=== PATIENT | female | born 1960 | race African-American/Black ===

== ENCOUNTER 2021-08-01 15:26 | Emergency (ER) | payer OTHER ==
[~2021-08-01] VITALS: Ht 167.6 cm; Wt 68.0 kg
[2021-08-01] MEDS ORDERED: LIDOCAINE 5% PATCH TOP SCH (17:15)
[2021-08-01] MEDS ORDERED: KETOROLAC 60MG/2ML VIAL IM ONE (17:15)
[2021-08-01] MEDS ORDERED: CYCLOBENZAPRINE 10MG TABLET PO ONE (17:15)
[2021-08-01] MEDS ORDERED: NAP5EC MT (17:59)
[2021-08-01] MEDS ORDERED: CYCL10TA21 MT (17:59)
[2021-08-01 18:08] VITALS: BP 150/82
== END 2021-08-01 18:21 | disposition home or self-care (01) ==
LOC: ER 15:26
DX: M25.551 Pain in right hip (principal); E11.649 Type 2 diabetes mellitus with hypoglycemia without coma; I10 Essential (primary) hypertension; W01.198A Fall on same level from slipping, tripping and stumbling with subsequent striking against other object, initial encounter; Y93.89 Activity, other specified; Y92.512 Supermarket, store or market as the place of occurrence of the external cause; Z88.6 Allergy status to analgesic agent
CPT/HCPCS: 82962; 96372; 99283; J1885

== ENCOUNTER 2023-05-26 09:13 | Emergency (ER) | payer MEDICARE, OTHER ==
[~2023-05-26] VITALS: Ht 165.1 cm; Wt 65.0 kg
[~2023-05-26 09:13] MED LIST: CYCL10TA21 MT; NAP5EC MT
[2023-05-26 09:27] VITALS: O2SAT 100
[2023-05-26] MEDS: GLUCAGON,HUMAN RECOMBINANT 1MG/VIAL IM ONE (10:45)
[2023-05-26 14:14] VITALS: BP 104/78; PULSE 76; RESP 16; TEMP 98
== END 2023-05-26 14:44 | disposition home or self-care (01) ==
LOC: ER 09:13
DX: T38.3X1A Poisoning by insulin and oral hypoglycemic [antidiabetic] drugs, accidental (unintentional), initial encounter (principal); E11.9 Type 2 diabetes mellitus without complications; I10 Essential (primary) hypertension; Z88.5 Allergy status to narcotic agent; Y92.9 Unspecified place or not applicable
CPT/HCPCS: 99283; 96372; 82962; J1610

== ENCOUNTER 2023-11-26 21:21 | Inpatient (IN) | payer MEDICAID ==
[~2023-11-26] VITALS: Ht 162.6 cm; Wt 71.7 kg
[~2023-11-26 21:21] MED LIST changes: +ARIP20TA62 PO; +ASPI-1497 PO; +ATOR40TA70 PO; +CARV25TA47 PO; +CHLO25TA2 PO; -CYCL10TA21 MT; +DAPA10TA PO; +HYDR-4005 PO; +INSU100I28 SQ; +MECL-299 MT; +METO5TAB86 MT; +MIRT-144 PO; -NAP5EC MT; +ONDA4TAB50 MT; +PARO-150 PO; +PREG75CA PO; +SITA50TA3 PO; +SULF1TAB48 MT; +TIMO5DRO32 EACHEYE; +TIZA4CAP6 PO; +VALS160T28 PO
[2023-11-26 22:29] LABS: CHLORIDE 95 mEq/L (98-107); HEMATOCRIT. 46.2 % (36.0-48.0); HEMOGLOBIN. 13.3 g/dL (12.0-16.0); MEAN CORPUSCULAR HEMOGLOBIN 28.2 pg (28.0-32.0); MEAN CORPUSCULAR HGB CONC 28.9 g/dL (31.0-37.0); MEAN CORPUSCULAR VOLUME 97.5 fL (81.0-99.0); PLATELET 218 x1000/uL (130-400); POTASSIUM 5.2 mEq/L (3.5-5.1); RED BLOOD CELL COUNT 4.73 mill/uL (4.2-5.4); RED CELL DISTRIBUTION WIDTH 16.7 % (11.6-14.6); SODIUM 133 mEq/L (136-145); WHITE BLOOD COUNT 12.1 x1000/uL (4.5-11.0)
[2023-11-26 22:30] LABS: CALCIUM 9.2 mg/dL (8.7-10.4); CARBON DIOXIDE 12 mEq/L (21-32); INR 1.2; PROTHROMBIN TIME 13.5 sec (9.6-11.0)
[2023-11-26 22:32] LABS: DIFFERENTIAL COMMENT 1
[2023-11-26 22:35] LABS: UREA NITROGEN BLOOD 25 mg/dL (9-23)
[2023-11-26 22:37] LABS: ALANINE AMINOTRANSFERASE 32 IU/L (10-49); ALBUMIN 4.6 g/dL (3.2-4.8); ASPARTATE AMINOTRANSFERASE 29 IU/L (<34); BILIRUBIN DIRECT 0.3 mg/dL (<=3.0); BILIRUBIN TOTAL 0.8 mg/dL (0.1-1.0); PROTEIN TOTAL 7.8 g/dL (6.0-8.3)
[2023-11-26] MEDS: KETOROLAC 30MG/ML VIAL IV STA (22:39)
[2023-11-26] MEDS: SODIUM CHLORIDE 0.9% 1000ML BAG (SEPSIS BOLUS) IV ONE (22:40)
[2023-11-26] MEDS: CEFTRIAXONE 1GM/50ML 50 ML IV ONE (22:41)
[2023-11-26 22:45] LABS: CREATININE 2.4 mg/dL (0.6-1.0); GLUCOSE 634 mg/dL (70-105); LACTIC ACID 3.5 mmol/L (0.4-2.0)
[2023-11-26] MEDS ORDERED: BLOOD SUGAR DIAGNOSTIC STRIP TEST PRN (22:45)
[2023-11-26] MEDS ORDERED: DEXT IV SCH (22:45)
[2023-11-26] MEDS ORDERED: INSULIN REGULAR (DRIP) 100 UNITS in SODIUM CHLORIDE 0.9% 99 ML IV SCH (22:45)
[2023-11-26] MEDS ORDERED: LACTATED RINGERS IV SCH (22:45)
[2023-11-26] MEDS: INSULIN REGULAR (HUMULIN R) 1000UNITS/10ML VIAL IV ONE (22:45)
[2023-11-26] MEDS ORDERED: POTASSIUM CHLORIDE IV SCH (22:45)
[2023-11-26] MEDS ORDERED: DEXTROSE 50% WATER 50ML SYRINGE IV PRN (22:45)
[2023-11-26 23:13] LABS: PLATELET ESTIMATE NORMAL
[2023-11-26 23:14] LABS: ANISOCYTOSIS 1+
[2023-11-26] MEDS: BLOOD SUGAR DIAGNOSTIC STRIP TEST SCH (23:30)
[2023-11-27] VITALS (51 sets, daily range): BP systolic 85–139; BP diastolic 42–65; PULSE 70–95; RESP 11–27; TEMP 36.8628; O2SAT 78–100
[2023-11-27] MEDS: INSULIN REGULAR 100U/100ML PMX 100 ML IV SCH ×2 (00:36→09:33)
[2023-11-27 00:42] LABS: TROPONIN I HIGH SENSITIVITY 49 ng/L (3.0-34)
[2023-11-27 00:44] LABS: LACTIC ACID 3.6 mmol/L (0.4-2.0)
[2023-11-27] MEDS ORDERED: CLONIDINE 0.1MG TABLET PO PRN (01:15)
[2023-11-27] MEDS ORDERED: DOCUSATE SODIUM 100MG CAPSULE PO PRN (01:15)
[2023-11-27] MEDS ORDERED: IPRATROPIUM/ALBUTEROL 0.5-3(2.5)MG/3ML NEB HHN PRN (01:15)
[2023-11-27] MEDS ORDERED: ENOXAPARIN 40MG/0.4ML SYR SUBCUT SCH (01:15)
[2023-11-27] MEDS ORDERED: GUAIFENESIN 200MG/10ML SUGAR FREE UDC PO PRN (01:15)
[2023-11-27] MEDS ORDERED: MAGNESIUM/ALUMINUM HYDROXIDE/SIMETHICONE 30ML UDC PO PRN (01:15)
[2023-11-27] MEDS ORDERED: ACETAMINOPHEN 325MG TABLET PO PRN (01:15)
[2023-11-27] MEDS: INSULIN REGULAR (HUMULIN R) 1000UNITS/10ML VIAL IV SCH (01:30)
[2023-11-27 02:03] LABS: BG BASE EXCESS -14.7 mmol/L (-2.0-3.0); BG CARBOXYHEMOGLOBIN 0.4 % (0.5-1.5); BG DEOXYHEMOGLOBIN 2.2 % (0.0-5.0); BG HCO3 ACT 9.4 mmol/L (21.0-28.0); BG METHEMOGLOBIN 0.2 % (0.5-1.5); BG OXYGEN SATURATION 97.8 % (94.0-98.0); BG OXYHEMOGLOBIN 97.2 % (94.0-98.0); BG PCO2 19.5 mmHg (32.0-45.0); BG PH 7.303 (7.350-7.450); BG SAMPLE SITE LEFT RADIAL; BG TOTAL HEMOGLOBIN 12.9 g/dL (12.0-16.0)
[2023-11-27] MEDS ORDERED: CEFEPIME 1GM IN DEXT 5% 50ML IV SCH (02:15)
[2023-11-27 03:07] LABS: CHLORIDE 103 mEq/L (98-107); POTASSIUM 4.3 mEq/L (3.5-5.1); SODIUM 139 mEq/L (136-145)
[2023-11-27 03:08] LABS: CARBON DIOXIDE 12 mEq/L (21-32)
[2023-11-27 03:13] LABS: CREATININE 2.3 mg/dL (0.6-1.0); UREA NITROGEN BLOOD 30 mg/dL (9-23)
[2023-11-27 03:15] LABS: PHOSPHORUS 5.9 mg/dL (2.5-4.9)
[2023-11-27 04:25] LABS: GLUCOSE 508 mg/dL (70-105)
[2023-11-27] MEDS ORDERED: SODIUM PHOSPHATE 15 MMOL in SODIUM CHLORIDE 0.9% 245 ML IV PRN (04:30)
[2023-11-27] MEDS ORDERED: MAGNESIUM 2 G PREMIX 50 ML IV PRN (04:30)
[2023-11-27 04:42] LABS: HEMATOCRIT. 37.7 % (36.0-48.0); HEMOGLOBIN. 11.6 g/dL (12.0-16.0); MEAN CORPUSCULAR HEMOGLOBIN 27.9 pg (28.0-32.0); MEAN CORPUSCULAR HGB CONC 30.8 g/dL (31.0-37.0); MEAN CORPUSCULAR VOLUME 90.5 fL (81.0-99.0); MEAN PLATELET VOLUME 9.4 fl (7.4-10.4); PLATELET 205 x1000/uL (130-400); RED BLOOD CELL COUNT 4.17 mill/uL (4.2-5.4); RED CELL DISTRIBUTION WIDTH 16.2 % (11.6-14.6); WHITE BLOOD COUNT 11.7 x1000/uL (4.5-11.0)
[2023-11-27] MEDS ORDERED: DEXTROSE 50% WATER 50ML SYRINGE IV PRN ×2 (04:45→17:30)
[2023-11-27] MEDS ORDERED: BLOOD SUGAR DIAGNOSTIC STRIP TEST PRN (04:45)
[2023-11-27 04:49] LABS: DIFFERENTIAL COMMENT 1
[2023-11-27 04:50] LABS: CHLORIDE 105 mEq/L (98-107); POTASSIUM 3.6 mEq/L (3.5-5.1); SODIUM 141 mEq/L (136-145)
[2023-11-27 04:51] LABS: CALCIUM 8.5 mg/dL (8.7-10.4); CARBON DIOXIDE 15 mEq/L (21-32)
[2023-11-27 04:56] LABS: CREATININE 2.5 mg/dL (0.6-1.0); TRIGLYCERIDE 157 mg/dL (0-150); UREA NITROGEN BLOOD 39 mg/dL (9-23)
[2023-11-27 04:57] LABS: CREATINE KINASE MB FRACTION 1.6 ng/mL (0.5-3.6); LDL CHOLESTEROL 55 mg/dL (5-100)
[2023-11-27 04:58] LABS: CHOLESTEROL 143 mg/dL (<200); HDL CHOLESTEROL 54 mg/dL (>65); PHOSPHORUS 4.7 mg/dL (2.5-4.9)
[2023-11-27 05:00] LABS: T4 FREE 1.12 ng/dL (0.89-1.76)
[2023-11-27] MEDS ORDERED: KCL 20MEQ/100ML PREMIX 100 ML IV PRN (05:00)
[2023-11-27] MEDS ORDERED: POTASSIUM CHLORIDE 40 MEQ in SODIUM CHLORIDE 0.9% 230 ML IV PRN (05:00)
[2023-11-27 05:01] LABS: THYROID STIMULATING HORMONE 0.21 uIU/mL (0.55-4.78)
[2023-11-27 05:08] LABS: GLUCOSE 445 mg/dL (70-105)
[2023-11-27 05:15] LABS: ANISOCYTOSIS 1+; PLATELET ESTIMATE NORMAL
[2023-11-27] MEDS: CEFEPIME 1GM/50ML 50 ML IV SCH (05:22)
[2023-11-27] MEDS: SODIUM CHLORIDE 0.45% 1,000 ML IV SCH (05:22)
[2023-11-27] MEDS: ONDANSETRON HCL 4MG/2ML INJ IV PRN (05:31)
[2023-11-27 05:39] LABS: CLARITY URINE CLEAR (CLEAR); COLOR URINE YELLOW (YELLOW); GLUCOSE URINE 3+ (NEGATIVE); KETONES URINE 2+ (NEGATIVE); LEUKOCYTE ESTERASE URINE NEGATIVE (NEGATIVE); NITRITE URINE NEGATIVE (NEGATIVE); OCCULT BLOOD URINE NEGATIVE (NEGATIVE); PH URINE 5.5 (4.5-8.0); PROTEIN URINE NEGATIVE (NEGATIVE); SPECIFIC GRAVITY URINE 1.023 (1.005-1.030); UROBILINOGEN URINE 0.2 E.U./dL (0.2-1.0)
[2023-11-27] MEDS: BLOOD SUGAR DIAGNOSTIC STRIP TEST SCH ×2 (05:46→18:06)
[2023-11-27 05:47] LABS: *AMPHETAMINES SCREEN URINE NEGATIVE (NEGATIVE); *BARBITURATES SCREEN URINE NEGATIVE (NEGATIVE); *BENZODIAZEPINES SCREEN URINE NEGATIVE (NEGATIVE); *COCAINE SCREEN URINE NEGATIVE (NEGATIVE); CANNABINOID URINE SCREEN NEGATIVE (NEGATIVE); ECSTASY MDMA SCREEN URINE NEGATIVE (NEGATIVE); METHADONE URINE SCREEN NEGATIVE (NEGATIVE); OPIATES URINE SCREEN NEGATIVE (NEGATIVE); PHENCYCLIDINE URINE SCREEN NEGATIVE (NEGATIVE)
[2023-11-27 07:02] LABS: RBC URINE 0-2 /hpf (0-2); SQUAMOUS EPITHELIAL CELL URINE FEW /lpf (RARE/1+)
[2023-11-27 07:03] LABS: BACTERIA URINE NONE SEEN; WBC URINE NONE SEEN /hpf (0-2)
[2023-11-27] MEDS: LACTATED RINGERS IV SCH (07:14)
[2023-11-27] MEDS: DEXT IV SCH (07:14)
[2023-11-27] MEDS: POTASSIUM CHLORIDE IV SCH (07:14)
[2023-11-27] MEDS ORDERED: INSULIN REGULAR 100U/100ML PMX 99 ML IV SCH (08:00)
[2023-11-27] MEDS: DEXT 5%/0.45% NACL 1000ML 1,000 ML IV SCH (09:00)
[2023-11-27] MEDS: ENOXAPARIN 30MG/0.3ML SYR SUBCUT SCH (09:34)
[2023-11-27] MEDS: ASPIRIN 81MG TABLET PO SCH (09:35)
[2023-11-27] MEDS: AMIODARONE 200MG TABLET PO SCH (09:35)
[2023-11-27] MEDS: LOSARTAN 50 MG TABLET PO SCH (09:35)
[2023-11-27] MEDS: PANTOPRAZOLE SODIUM 40 MG/VIAL IV SCH (09:35)
[2023-11-27] MEDS: PAROXETINE HCL 10MG TABLET PO SCH (09:58)
[2023-11-27] MEDS: MIDODRINE HCL 5MG TABLET PO SCH (15:42)
[2023-11-27] MEDS: INSULIN GLARGINE 100 UNITS/ML SUBCUT SCH (18:07)
[2023-11-27] MEDS: INSULIN LISPRO 100 UNITS/ML SUBCUT SCH (18:20)
[2023-11-27 19:12] LABS: CHLORIDE 105 mEq/L (98-107); POTASSIUM 2.9 mEq/L (3.5-5.1); SODIUM 139 mEq/L (136-145)
[2023-11-27 19:13] LABS: CALCIUM 8.1 mg/dL (8.7-10.4); CARBON DIOXIDE 27 mEq/L (21-32)
[2023-11-27 19:18] LABS: CREATININE 1.9 mg/dL (0.6-1.0); GLUCOSE 178 mg/dL (70-105); UREA NITROGEN BLOOD 39 mg/dL (9-23)
[2023-11-27 19:19] LABS: CREATINE KINASE MB FRACTION 2.8 ng/mL (0.5-3.6)
[2023-11-27 19:20] LABS: CREATINE KINASE 219 IU/L (34-145); PHOSPHORUS 3.3 mg/dL (2.5-4.9)
[2023-11-27 19:27] LABS: TROPONIN I HIGH SENSITIVITY 48 ng/L (3.0-34)
[2023-11-27] MEDS: ATORVASTATIN CALCIUM 20MG TABLET PO SCH (20:03)
[2023-11-27] MEDS: KCL 20MEQ/100ML PREMIX 100 ML IV SCH (20:39)
[2023-11-27] MEDS: MAGNESIUM 1 G PREMIX 100 ML IV NR (20:44)
[2023-11-27] MEDS ORDERED: MIRTAZAPINE 30MG TABLET PO SCH (21:00)
[2023-11-27] MEDS: MIRTAZAPINE 15MG TABLET PO SCH (21:05)
[2023-11-27 21:13] LABS: CHLORIDE 103 mEq/L (98-107); POTASSIUM 3.2 mEq/L (3.5-5.1); SODIUM 138 mEq/L (136-145)
[2023-11-27 21:14] LABS: CARBON DIOXIDE 26 mEq/L (21-32)
[2023-11-27 21:21] LABS: PHOSPHORUS 3.2 mg/dL (2.5-4.9)
[2023-11-27 23:47] LABS: CREATINE KINASE MB FRACTION 2.7 ng/mL (0.5-3.6)
[2023-11-28] VITALS (50 sets, daily range): BP systolic 85–127; BP diastolic 39–75; PULSE 63–89; RESP 9–24; TEMP 36.28068–37.05852; O2SAT 97–100
[2023-11-28 06:17] LABS: BASOPHILS % 0.4 % (0.0-2.0); HEMATOCRIT. 36.9 % (36.0-48.0); HEMOGLOBIN. 11.8 g/dL (12.0-16.0); LYMPHOCYTES % 10.6 % (20.0-50.0); MEAN CORPUSCULAR HEMOGLOBIN 28.3 pg (28.0-32.0); MEAN CORPUSCULAR VOLUME 88.3 fL (81.0-99.0); MEAN PLATELET VOLUME 9.4 fl (7.4-10.4); MONOCYTES % 10.9 % (2.0-8.0); NEUTROPHILS % 78.1 % (40.0-76.0); PLATELET 178 x1000/uL (130-400); RED BLOOD CELL COUNT 4.17 mill/uL (4.2-5.4); RED CELL DISTRIBUTION WIDTH 15.7 % (11.6-14.6); WHITE BLOOD COUNT 10.8 x1000/uL (4.5-11.0)
[2023-11-28 06:30] LABS: CARBON DIOXIDE 23 mEq/L (21-32); CHLORIDE 105 mEq/L (98-107); POTASSIUM 3.9 mEq/L (3.5-5.1); SODIUM 135 mEq/L (136-145)
[2023-11-28 06:31] LABS: CALCIUM 8.5 mg/dL (8.7-10.4)
[2023-11-28 06:35] LABS: CREATININE 1.6 mg/dL (0.6-1.0)
[2023-11-28 06:36] LABS: GLUCOSE 328 mg/dL (70-105); UREA NITROGEN BLOOD 24 mg/dL (9-23)
[2023-11-28 06:38] LABS: PHOSPHORUS 2.3 mg/dL (2.5-4.9)
[2023-11-28] MEDS: INSULIN LISPRO 100 UNITS/ML SUBCUT SCH (07:50)
[2023-11-28] MEDS: SODIUM CHLORIDE 0.9% 1,000 ML IV NR (14:45)
[2023-11-28] MEDS: METOCLOPRAMIDE HCL 10MG/2ML VIAL IV NR (16:56)
[2023-11-28] MEDS: PHENOL/SODIUM PHENOLATE 1.4% SRPAY 177ML MM NR (19:06)
[2023-11-28] MEDS: CEFEPIME 2GM/100ML 100 ML IV SCH (19:07)
[2023-11-28] MEDS: INSULIN GLARGINE 100 UNITS/ML SUBCUT SCH (22:04)
[2023-11-29] VITALS (23 sets, daily range): BP systolic 101–131; BP diastolic 43–73; PULSE 65–79; RESP 12–20; TEMP 36.44736–37.05852; O2SAT 97–100
[2023-11-29 05:49] LABS: HEMATOCRIT 36.8 % (36.0-48.0); MEAN CORPUSCULAR HEMOGLOBIN 28.5 pg (28.0-32.0); MEAN CORPUSCULAR HGB CONC 32.7 g/dL (31.0-37.0); PLATELET 168 x1000/uL (130-400); RED BLOOD CELL COUNT 4.23 mill/uL (4.2-5.4); RED CELL DISTRIBUTION WIDTH 15.9 % (11.6-14.6); WHITE BLOOD COUNT 6.6 x1000/uL (4.5-11.0)
[2023-11-29 05:51] LABS: CARBON DIOXIDE 29 mEq/L (21-32); CHLORIDE 105 mEq/L (98-107); POTASSIUM 3.6 mEq/L (3.5-5.1); SODIUM 139 mEq/L (136-145)
[2023-11-29 05:52] LABS: CALCIUM 8.5 mg/dL (8.7-10.4)
[2023-11-29 05:57] LABS: CREATININE 1.4 mg/dL (0.6-1.0); GLUCOSE 290 mg/dL (70-105); UREA NITROGEN BLOOD 16 mg/dL (9-23)
[2023-11-29] MEDS ORDERED: LIDOCAINE HCL 1% 10 MG/ML 10ML VIAL ONE (08:42)
[2023-11-29] MEDS: MIDODRINE HCL 5MG TABLET PO SCH (13:00)
[2023-11-29] MEDS: POTASSIUM PHOSPHATE 15 MMOL in DEXT 5% WATER 245 ML IV NR (17:40)
[2023-11-29] MEDS: ACETAMINOPHEN 325MG TABLET PO PRN (17:57)
[2023-11-29] MEDS: CEFEPIME 2GM/100ML 100 ML IV SCH (21:59)
[2023-11-30] VITALS: BP 122/61; PULSE 71; RESP 18; TEMP 36.50292; O2SAT 97
[2023-11-30 04:00] VITALS: BP 130/67; PULSE 68; RESP 18; TEMP 36.50292; O2SAT 100
[2023-11-30 08:00] VITALS: BP 130/68; PULSE 69; RESP 18; TEMP 36.61404; O2SAT 99
[2023-11-30 08:11] LABS: CARBON DIOXIDE 31 mEq/L (21-32); CHLORIDE 104 mEq/L (98-107); POTASSIUM 3.3 mEq/L (3.5-5.1); SODIUM 141 mEq/L (136-145)
[2023-11-30 08:12] LABS: CALCIUM 8.9 mg/dL (8.7-10.4)
[2023-11-30 08:16] LABS: CREATININE 1.1 mg/dL (0.6-1.0); GLUCOSE 173 mg/dL (70-105)
[2023-11-30 08:17] LABS: UREA NITROGEN BLOOD 8 mg/dL (9-23)
[2023-11-30 08:23] LABS: HEMOGLOBIN 11.3 g/dL (12.0-16.0); MEAN CORPUSCULAR HEMOGLOBIN 28.1 pg (28.0-32.0); MEAN CORPUSCULAR HGB CONC 32.5 g/dL (31.0-37.0); MEAN CORPUSCULAR VOLUME 86.6 fL (81.0-99.0); PLATELET 152 x1000/uL (130-400); RED BLOOD CELL COUNT 4.03 mill/uL (4.2-5.4); RED CELL DISTRIBUTION WIDTH 15.7 % (11.6-14.6); WHITE BLOOD COUNT 3.6 x1000/uL (4.5-11.0)
[2023-11-30] MEDS: LOSARTAN 25 MG TABLET PO SCH (08:39)
[2023-11-30 12:00] VITALS: BP 126/70; PULSE 74; RESP 18; TEMP 36.50292; O2SAT 100
[2023-11-30] MEDS ORDERED: LOSA25TA26 PO (14:58)
[2023-11-30] MEDS ORDERED: INSU100I28 SQ (14:58)
[2023-11-30] MEDS ORDERED: PARO10TA74 PO (14:58)
[2023-11-30] MEDS ORDERED: AMI2 PO (14:58)
[2023-11-30] MEDS ORDERED: ASPI-1160 PO (14:58)
[2023-11-30] MEDS ORDERED: MIRT-89 PO (14:58)
[2023-11-30] MEDS ORDERED: INSU100I13 SQ (14:58)
[2023-11-30 15:32] VITALS: BP 126/70; PULSE 74; TEMP 97.7; O2SAT 100
[2023-11-30 16:00] VITALS: BP 132/72; PULSE 76; RESP 18; TEMP 36.6696; TEMP 36.66960; O2SAT 98
== END 2023-11-30 17:54 | disposition home or self-care (01) | DRG 637 ==
LOC: ER 21:21 → EDBEDREQSVC 22:51 → CVICU 22:54 → EDBEDREQ 22:57 → EDBEDREQTM 22:57 → 8WST 11-29 11:08
PROVIDERS: ADMIT Internal Medicine; ATTEND Internal Medicine
PROC: 02HV33Z Insertion of Infusion Device into Superior Vena Cava, Percutaneous Approach (ICD-10-PCS; principal; 2023-11-29)
PROC: B548ZZA Ultrasonography of Superior Vena Cava, Guidance (ICD-10-PCS; 2023-11-29)
DX: E11.10 Type 2 diabetes mellitus with ketoacidosis without coma (principal); I21.A1 Myocardial infarction type 2; N17.9 Acute kidney failure, unspecified; E11.42 Type 2 diabetes mellitus with diabetic polyneuropathy; E78.5 Hyperlipidemia, unspecified; F32.A Depression, unspecified; E87.5 Hyperkalemia; N18.9 Chronic kidney disease, unspecified; I12.9 Hypertensive chronic kidney disease with stage 1 through stage 4 chronic kidney disease, or unspecified chronic kidney disease; E11.22 Type 2 diabetes mellitus with diabetic chronic kidney disease; H40.9 Unspecified glaucoma; H70.91 Unspecified mastoiditis, right ear; H92.01 Otalgia, right ear; D72.829 Elevated white blood cell count, unspecified; E86.0 Dehydration; Z79.4 Long term (current) use of insulin; Z87.891 Personal history of nicotine dependence
CPT/HCPCS: 36415; 36573; 36600; 71045; 80048; 80051; 80061; 80076; 80305; 81003; 82010; 82375; 82550; 82553; 82805; 82962; 83036; 83605; 83735; 83930; 84100; 84145; 84439; 84443; 84484; 85025; 85027; 93005; 93970; 99291; C1725; C1893; J0692; J0696; J1650; J1815; J1885; J2405; J2470; J2765; J3475; J3480; J3490; J7030; J7060; J7121

== ENCOUNTER 2024-05-29 12:37 | Emergency (ER) | payer MEDICAID ==
[~2024-05-29] VITALS: Ht 177.8 cm; Wt 73.0 kg
[~2024-05-29 12:37] MED LIST changes: +AMI2 PO; -ARIP20TA62 PO; +ASPI-1160 PO; -ASPI-1497 PO; -CARV25TA47 PO; -CHLO25TA2 PO; -HYDR-4005 PO; +INSU100I13 SQ; +LOSA25TA26 PO; -MECL-299 MT; +MECL-299 PO; +METO-293 PO; -METO5TAB86 MT; -MIRT-144 PO; +MIRT-89 PO; +ONDA-239 PO; -ONDA4TAB50 MT; -PARO-150 PO; +PARO10TA74 PO; -SULF1TAB48 MT; -TIZA4CAP6 PO; -VALS160T28 PO
[2024-05-29 12:38] VITALS: O2SAT 98
[2024-05-29] MEDS: KETOROLAC 30MG/ML VIAL IV ONE (14:23)
[2024-05-29] MEDS: SODIUM CHLORIDE 0.9% 1,000 ML IV ONE (14:23)
[2024-05-29] MEDS: ONDANSETRON HCL 4MG/2ML INJ IV ONE (14:23)
[2024-05-29 14:33] LABS: HEMATOCRIT. 40.3 % (36.0-48.0); HEMOGLOBIN. 12.3 g/dL (12.0-16.0); MEAN CORPUSCULAR HEMOGLOBIN 27.9 pg (28.0-32.0); MEAN CORPUSCULAR HGB CONC 30.4 g/dL (31.0-37.0); MEAN CORPUSCULAR VOLUME 91.6 fL (81.0-99.0); MEAN PLATELET VOLUME 9.1 fl (7.4-10.4); PLATELET 191 x1000/uL (130-400); RED CELL DISTRIBUTION WIDTH 16.2 % (11.6-14.6); WHITE BLOOD COUNT 17.5 x1000/uL (4.5-11.0)
[2024-05-29 14:40] LABS: DIFFERENTIAL COMMENT 1
[2024-05-29 14:42] LABS: CHLORIDE 94 mEq/L (98-107); POTASSIUM 4.4 mEq/L (3.5-5.1); SODIUM 133 mEq/L (136-145)
[2024-05-29 14:43] LABS: CARBON DIOXIDE 21 mEq/L (21-32)
[2024-05-29 14:48] LABS: GLUCOSE 242 mg/dL (70-105)
[2024-05-29 14:49] LABS: TROPONIN I HIGH SENSITIVITY 10 ng/L (3.0-34); UREA NITROGEN BLOOD 24 mg/dL (9-23)
[2024-05-29 14:50] LABS: ALANINE AMINOTRANSFERASE 111 IU/L (10-49); ALBUMIN 4.1 g/dL (3.2-4.8); ASPARTATE AMINOTRANSFERASE 134 IU/L (<34); BILIRUBIN DIRECT 0.4 mg/dL (<=3.0)
[2024-05-29 14:51] LABS: BILIRUBIN TOTAL 0.8 mg/dL (0.1-1.0); PROTEIN TOTAL 7.2 g/dL (6.0-8.3)
[2024-05-29 14:52] LABS: CREATININE 1.6 mg/dL (0.6-1.0); ETHANOL BLOOD < 10 mg/dL (<10)
[2024-05-29 15:05] LABS: INR 1.1; PROTHROMBIN TIME 11.6 sec (9.6-11.0)
[2024-05-29 15:07] LABS: BETA HYDROXYBUTYRATE 7.6 mMol/L (0.0-0.3)
[2024-05-29 15:45] LABS: PLATELET ESTIMATE NORMAL
[2024-05-29] MEDS ORDERED: AMOX1TAB16 MT (15:45)
[2024-05-29] MEDS ORDERED: METO-293 MT (15:45)
[2024-05-29] MEDS ORDERED: AZIT250T12 MT (15:45)
[2024-05-29 16:05] VITALS: BP 108/64; PULSE 81; RESP 14; TEMP 37.2; O2SAT 99
== END 2024-05-29 16:34 | disposition home or self-care (01) ==
LOC: ER 12:37
DX: J18.9 Pneumonia, unspecified organism (principal); N17.9 Acute kidney failure, unspecified; K56.699 Other intestinal obstruction unspecified as to partial versus complete obstruction; E11.9 Type 2 diabetes mellitus without complications; E78.00 Pure hypercholesterolemia, unspecified; I10 Essential (primary) hypertension; Z79.84 Long term (current) use of oral hypoglycemic drugs; Z79.82 Long term (current) use of aspirin; Z79.4 Long term (current) use of insulin; Z79.899 Other long term (current) drug therapy; Z88.5 Allergy status to narcotic agent
CPT/HCPCS: 80076; 80048; 82010; 80320; 83880; 85025; 85610; 84484; 36415; 71045; 74176; 93005; 96361; 96374; 96375; 99285; J1885; J2405; J7030; G0480

== ENCOUNTER 2024-10-22 17:44 | Inpatient (IN) | payer MEDICAID, MEDICARE ==
[~2024-10-22] VITALS: Ht 167.6 cm; Wt 62.4 kg
[~2024-10-22 17:44] MED LIST changes: +AMOX1TAB16 MT; +AZIT250T12 MT; +METO-293 MT
[2024-10-22] MEDS ORDERED: HYDROMORPHONE HCL/PF 2MG/ML INJ IV ONE (18:15)
[2024-10-22] MEDS: HYDROMORPHONE HCL/PF 1MG/ML INJ IV SCH (18:38)
[2024-10-22] MEDS: ONDANSETRON HCL 4MG/2ML INJ IV ONE (18:38)
[2024-10-22 18:54] LABS: BG DEOXYHEMOGLOBIN 78.8 % (0.0-5.0)
[2024-10-22 19:04] LABS: BASOPHILS % 0.2 % (0.0-2.0); EOSINOPHILS % 0.0 % (0.0-5.0); HEMATOCRIT. 40.3 % (36.0-48.0); HEMOGLOBIN. 13.2 g/dL (12.0-16.0); LYMPHOCYTES % 8.7 % (20.0-50.0); MEAN PLATELET VOLUME 9.1 fl (7.4-10.4); MONOCYTES % 5.3 % (2.0-8.0); NEUTROPHILS % 85.8 % (40.0-76.0); PLATELET 223 x1000/uL (130-400); RED BLOOD CELL COUNT 4.59 mill/uL (4.2-5.4); RED CELL DISTRIBUTION WIDTH 14.8 % (11.6-14.6)
[2024-10-22 19:24] LABS: CREATININE 1.9 mg/dL (0.6-1.0); UREA NITROGEN BLOOD 25 mg/dL (9-23)
[2024-10-22 19:26] LABS: ASPARTATE AMINOTRANSFERASE 29 IU/L (<34); BILIRUBIN DIRECT 0.4 mg/dL (<=3.0); BILIRUBIN TOTAL 1.3 mg/dL (0.1-1.0); PROTEIN TOTAL 8.0 g/dL (6.0-8.3); TROPONIN I HIGH SENSITIVITY 14 ng/L (3.0-34)
[2024-10-22] MEDS: DEXTROSE 50% WATER 50ML SYRINGE IV ONE (19:55)
[2024-10-22] MEDS: INSULIN REGULAR (HUMULIN R) 1000UNITS/10ML VIAL IV ONE (19:56)
[2024-10-22] MEDS: SODIUM BICARBONATE 8.4% 50MEQ/50ML VIAL IV ONE (19:57)
[2024-10-22 21:26] VITALS: PULSE 81; RESP 18; O2SAT 99
[2024-10-22] MEDS: ALBUTEROL (0.5%) 2.5MG/0.5ML NEB HHN ONE (21:26)
[2024-10-22] MEDS: ALBUTEROL (0.083%) 2.5MG/3ML NEB ONE (21:30)
[2024-10-22 23:00] VITALS: BP 121/74; PULSE 88; RESP 18; TEMP 36.5848
[2024-10-23] VITALS (12 sets, daily range): BP systolic 99–125; BP diastolic 51–66; PULSE 61–91; RESP 14–26; TEMP 36.4–37.4; O2SAT 98–100
[2024-10-23] MEDS ORDERED: ACETAMINOPHEN 325MG TABLET PO PRN ×2
[2024-10-23] MEDS ORDERED: DEXTROSE 50% WATER 50ML SYRINGE IV PRN
[2024-10-23] MEDS: ONDANSETRON HCL 4MG/2ML INJ IV PRN (00:53)
[2024-10-23] MEDS: INSULIN LISPRO 100 UNITS/ML SUBCUT SCH ×2 (00:54→09:50)
[2024-10-23] MEDS: INSULIN GLARGINE 100 UNITS/ML SUBCUT SCH (00:55)
[2024-10-23] MEDS: SODIUM CHLORIDE 0.9% 1,000 ML IV SCH ×2 (00:56→21:35)
[2024-10-23] MEDS: HYDROMORPHONE HCL/PF 1MG/ML INJ IV PRN (00:59)
[2024-10-23 05:18] LABS: CREATININE 2.0 mg/dL (0.6-1.0)
[2024-10-23 05:19] LABS: UREA NITROGEN BLOOD 32.0 mg/dL (9-23)
[2024-10-23] MEDS ORDERED: NALOXONE HCL 0.4MG/ML VIAL IV PRN (06:15)
[2024-10-23] MEDS: BLOOD SUGAR DIAGNOSTIC STRIP TEST SCH (07:30)
[2024-10-23] MEDS: AMLODIPINE 2.5MG TABLET PO SCH (09:00)
[2024-10-23] MEDS: DIPHENHYDRAMINE 50MG/ML VIAL IV PRN (09:26)
[2024-10-23] MEDS: PANTOPRAZOLE SODIUM 40 MG/VIAL IV SCH ×2 (09:26→21:36)
[2024-10-23] MEDS: SERTRALINE HCL 50MG TABLET PO SCH (09:27)
[2024-10-23] MEDS: ENOXAPARIN 30MG/0.3ML SYR SUBCUT SCH (09:27)
[2024-10-23] MEDS: AMIODARONE 200MG TABLET PO SCH (09:28)
[2024-10-23] MEDS: VENLAFAXINE HCL 37.5MG TABLET PO SCH (09:39)
[2024-10-23] MEDS: TIMOLOL MALEATE 0.5% OPHTH DROPS 5ML EACHEYE SCH (09:49)
[2024-10-23] MEDS: THROAT LOZENGES-BENZOCAINE/MENTH/CETYLPYRD CL LOZENGES MM PRN (13:40)
[2024-10-23] MEDS ORDERED: MAGNESIUM/ALUMINUM HYDROXIDE/SIMETHICONE 30ML UDC PO PRN (19:30)
[2024-10-23] MEDS ORDERED: LORAZEPAM 1MG TABLET PO PRN (19:30)
[2024-10-23] MEDS: ZOLPIDEM TARTRATE 5MG TABLET PO PRN (21:38)
[2024-10-23] MEDS: HYDROCODONE/ACETAMINOPHEN 10/325MG TABLET PO PRN (21:38)
[2024-10-23] MEDS: SUCRALFATE 1G TABLET PO SCH (21:45)
[2024-10-24] VITALS (15 sets, daily range): BP systolic 95–151; BP diastolic 50–77; PULSE 59–75; RESP 8–26; TEMP 36.2–37.3; O2SAT 100
[2024-10-24 07:40] LABS: BASOPHILS % 0.0 % (0.0-2.0); EOSINOPHILS % 0.0 % (0.0-5.0); HEMATOCRIT. 33.0 % (36.0-48.0); HEMOGLOBIN. 10.8 g/dL (12.0-16.0); LYMPHOCYTES % 27.7 % (20.0-50.0); MEAN PLATELET VOLUME 9.2 fl (7.4-10.4); MONOCYTES % 12.6 % (2.0-8.0); NEUTROPHILS % 59.7 % (40.0-76.0); PLATELET 164 x1000/uL (130-400); RED BLOOD CELL COUNT 3.83 mill/uL (4.2-5.4); RED CELL DISTRIBUTION WIDTH 14.8 % (11.6-14.6)
[2024-10-24 08:00] LABS: CREATININE 1.3 mg/dL (0.6-1.0)
[2024-10-24 08:01] LABS: UREA NITROGEN BLOOD 21 mg/dL (9-23)
[2024-10-24 08:03] LABS: PHOSPHORUS 3.4 mg/dL (2.5-4.9)
[2024-10-24] MEDS: KCL 20MEQ/100ML PREMIX 100 ML IV SCH (10:51)
[2024-10-25] VITALS (12 sets, daily range): BP systolic 101–175; BP diastolic 47–128; PULSE 60–95; RESP 12–24; TEMP 35.6–37.3; O2SAT 99–100
[2024-10-25] MEDS: CLONIDINE 0.1MG TABLET PO PRN (03:11)
[2024-10-25] MEDS ORDERED: DORZ10DR8 EACHEYE (06:17)
[2024-10-25 07:37] LABS: BASOPHILS % 0.0 % (0.0-2.0); EOSINOPHILS % 0.0 % (0.0-5.0); HEMATOCRIT. 35.9 % (36.0-48.0); HEMOGLOBIN. 11.9 g/dL (12.0-16.0); LYMPHOCYTES % 27.8 % (20.0-50.0); MEAN PLATELET VOLUME 9.4 fl (7.4-10.4); MONOCYTES % 14.0 % (2.0-8.0); NEUTROPHILS % 58.2 % (40.0-76.0); PLATELET 174 x1000/uL (130-400); RED BLOOD CELL COUNT 4.18 mill/uL (4.2-5.4); RED CELL DISTRIBUTION WIDTH 14.9 % (11.6-14.6)
[2024-10-25 07:52] LABS: CREATININE 1.2 mg/dL (0.6-1.0); UREA NITROGEN BLOOD 12.0 mg/dL (9-23)
[2024-10-25] MEDS ORDERED: *PATIENT'S OWN MEDICATION STORAGE XX SCH (08:45)
[2024-10-25] MEDS: SERTRALINE HCL 50MG TABLET PO SCH (10:45)
[2024-10-25] MEDS: VISCOUS LIDOCAINE 2% 15 ML UDC PO PRN (19:07)
[2024-10-25] MEDS ORDERED: ZOLPIDEM TARTRATE 5MG TABLET PO PRN (23:00)
[2024-10-26] VITALS (7 sets, daily range): BP systolic 115–128; BP diastolic 51–87; PULSE 61–78; RESP 18–20; TEMP 36.3–37.1; O2SAT 95–99
[2024-10-26] MEDS: INSULIN GLARGINE 100 UNITS/ML SUBCUT SCH (22:00)
[2024-10-26] MEDS: DORZOLAMIDE 2% OPHTH 10 ML BOTTLE BOTHEYE SCH (22:29)
[2024-10-27] VITALS: BP 121/62; PULSE 62; RESP 19; TEMP 36.6; O2SAT 93; O2SAT 97
[2024-10-27 04:00] VITALS: BP 123/56; PULSE 61; RESP 16; TEMP 36.4; O2SAT 99
[2024-10-27 08:00] VITALS: BP 118/58; PULSE 64; RESP 16; TEMP 36.5; O2SAT 100
[2024-10-27 12:00] VITALS: BP 120/68; PULSE 74; RESP 20; TEMP 36.6; O2SAT 98
[2024-10-27] MEDS ORDERED: SUCR1TAB PO (13:57)
[2024-10-27] MEDS ORDERED: PROT40 MT (13:57)
[2024-10-27] MEDS ORDERED: HYDR-459 PO (13:57)
[2024-10-27 16:00] VITALS: BP 107/60; PULSE 66; RESP 20; TEMP 36.3; O2SAT 95
[2024-10-27 16:26] VITALS: BP 114/61; PULSE 74; RESP 18; TEMP 98.1
== END 2024-10-27 18:50 | disposition home or self-care (01) | DRG 638 ==
LOC: ER 17:44 → 5EST 20:10 → EDBEDREQTM 20:14 → EDBEDREQ 20:14 → EDBEDREQSVC 20:14 → ENRESERV 22:39 → 7WST 10-25 10:45
PROVIDERS: ADMIT Internal Medicine; ATTEND Internal Medicine
DX: E11.65 Type 2 diabetes mellitus with hyperglycemia (principal); N17.9 Acute kidney failure, unspecified; K21.9 Gastro-esophageal reflux disease without esophagitis; I10 Essential (primary) hypertension; F41.1 Generalized anxiety disorder; H40.9 Unspecified glaucoma; F32.A Depression, unspecified; E87.6 Hypokalemia; E78.00 Pure hypercholesterolemia, unspecified; Z79.4 Long term (current) use of insulin; Z79.899 Other long term (current) drug therapy; Z88.5 Allergy status to narcotic agent
CPT/HCPCS: 36415; 71045; 74176; 80048; 80076; 82010; 82375; 82803; 82962; 83036; 83735; 83880; 83930; 84100; 84484; 85025; 93005; 94070; 94640; 96374; 96375; 99291; A4606; J1171; J1200; J1650; J1815; J2405; J2470; J3480; J3490; J7030